=== PATIENT | male | born 1945 | race Caucasian/White ===

== ENCOUNTER → 2017-02-17 | Emergency (ER) | payer OTHER ==
[2017-02-17 12:36] VITALS: BP 138/77; TEMP 98.3; O2SAT 98
--- NOTE | 2017-02-17 12:57 | ED.PDOC ---
History of Present Illness - General Chief Complaint: Problem Stated Complaint: urinary frequency and UTI Time Seen by Provider: 02/17/17 12:51 Additional Information: C/O DIFFICULTY URINATING. HAS HAD LONG STANDING DIFFICULTY WITH URINATION AND [facility] HAS BEEN ON ORAL MEDS WITH LITTLE RELIEF. STATES STREAM IS DISBURSED TO THE POINT HE HAS TO SIT TO URINATE. TODAY HAD DIFFICULTY. THOUGHT HE HAD FINISHED THEN HAD URINARY LEAKAGE THROUGH HIS CLOTHES. DOES NOT THINK HE CAN WAIT UNTIL FEBRUARY. - History of Present Illness Severity: mild Improving Factors: nothing Worsening Factors: nothing Associated Symptoms: denies symptoms Allergies/Adverse Reactions: Allergies NO KNOWN ALLERGY Allergy (Verified 10/05/15 12:52) Home Medications: Ambulatory Orders Atorvastatin Calcium [Lipitor] 20 mg PO DAILY 08/04/15 Carvedilol [Coreg] 50 mg PO BEDTIME 08/04/15 Hydrochlorothiazide 50 mg PO DAILY 08/04/15 Lisinopril 20 mg PO DAILY 08/04/15 Omeprazole 20 mg PO DAILY 08/04/15 Sulfamethoxazole-Trimethoprim [Bactrim Ds 800-160 mg] 1 tab PO BID #20 tab 08/03 Tramadol HCl [Ultram] 50 mg PO Q6HRS PRN #30 tab 08/04/15 metFORMIN HCL [Glucophage] 500 mg PO DAILY 08/04/15 Carlos A/Poly/Hc Otic Susp [Cortisporin Otic Susp] 4 drops RIGHT_EAR TID #10 ml 10/04 Ciprofloxacin [Cipro] 500 mg PO BID #20 ml 02/17/17 Tamsulosin HCl [Flomax] 0.4 mg PO Q24HR #30 cap 02/17/17 Review of Systems - Review of Systems Constitutional: Denies: chills, fever EENTM: States: no symptoms reported Respiratory: States: no symptoms reported Cardiology: States: no symptoms reported Gastrointestinal/Abdominal: Denies: abdominal pain, nausea, vomiting Genitourinary: States: frequency. Denies: discharge, dysuria, hematuria Musculoskeletal: Denies: back pain Skin: States: no symptoms reported Neurological: Denies: numbness, tingling, weakness Endocrine: States: no symptoms reported Past Medical History (General) - Patient Medical History Hx Stroke: No Hx Cardiac Disorders: Yes - [place] 1998 Hx Congestive Heart Failure: Yes Hx Hypertension: Yes Hx Diabetes: Yes - NIDDM Hx Gastroesophageal Reflux: Yes Hx MRSA: Yes MRSA Source:: Wound - Vaccination History Hx Influenza Vaccination: Yes - 2014 Hx Pneumococcal Vaccination: Yes - 2013 - Social History Hx Tobacco Use: Yes Hx Alcohol Use: No Hx Substance Use: No Hx Substance Use Treatment: No Hx Depression: No - Female History Patient : No - Triage Comment ED Triage Comment: Patient states he has urinary frequency for the past month. stating urinates almost every hour throughout the night. Also started having low back pain yesterday. Family Medical History - Family History Father Living Status: Hx Cardiac Disease: Yes Physical Exam - Physical Exam General Appearance: Alert, No apparent distress, Well Developed, Well Nourished Eye Exam: bilateral normal Ears, Nose, Throat: hearing grossly normal, normal ENT inspection Neck: non-tender, full range of motion, supple, normal inspection Respiratory: lungs clear, normal breath sounds Cardiovascular/Chest: regular rate, rhythm, no murmur Gastrointestinal/Abdominal: normal bowel sounds, non tender, soft, no organomegaly, other - OBESE Rectal Exam: normal rectal tone, heme negative stool - PROSTATE SLIGHLTY BOGGY, 1+ ENLARGED, NTTP Back Exam: normal inspection, no CVA tenderness Extremity: normal range of motion, non-tender Neurologic: no motor/sensory deficits, alert, normal mood/affect Skin Exam: normal color, warm/dry Lymphatic: no adenopathy Progress - Progress Progress: 02/17/17 DISCUSSED HAJI WITH LEG BAG WITH PT. HE REFUSES. WILL COVER WITH ABX. HAS USED FLOMAX WITH SOME SUCCESS IN PAST. [facility] Departure - Departure Clinical Impression: Benign prostate hyperplasia Qualifiers: Lower urinary tract symptom presence: symptoms present Lower urinary tract symptom detail: incomplete bladder emptying Qualified Code(s): N40.1 - Benign prostatic hyperplasia with lower urinary tract symptoms; R39.14 - Feeling of incomplete bladder emptying Disposition: Discharge to Home or Self Care Condition: Fair Departure Forms: ED Discharge - Pt. Copy, Patient Portal Self Enrollment Prescriptions: Tamsulosin HCl [Flomax] 0.4 mg PO Q24HR #30 cap Ciprofloxacin [Cipro] 500 mg PO BID #20 ml Home Medications: Ambulatory Orders Atorvastatin Calcium [Lipitor] 20 mg PO DAILY 08/04/15 Carvedilol [Coreg] 50 mg PO BEDTIME 08/04/15 Hydrochlorothiazide 50 mg PO DAILY 08/04/15 Lisinopril 20 mg PO DAILY 08/04/15 Omeprazole 20 mg PO DAILY 08/04/15 Sulfamethoxazole-Trimethoprim [Bactrim Ds 800-160 mg] 1 tab PO BID #20 tab 08/03 Tramadol HCl [Ultram] 50 mg PO Q6HRS PRN #30 tab 08/04/15 metFORMIN HCL [Glucophage] 500 mg PO DAILY 08/04/15 Carlos A/Poly/Hc Otic Susp [Cortisporin Otic Susp] 4 drops RIGHT_EAR TID #10 ml 10/04 Ciprofloxacin [Cipro] 500 mg PO BID #20 ml 02/17/17 Tamsulosin HCl [Flomax] 0.4 mg PO Q24HR #30 cap 02/17/17
== END | disposition home or self-care (01) ==
LOC: ER 12:08
DX: N40.1 Benign prostatic hyperplasia with lower urinary tract symptoms (principal); R35.0 Frequency of micturition; R39.14 Feeling of incomplete bladder emptying; I25.2 Old myocardial infarction; I11.0 Hypertensive heart disease with heart failure; I50.9 Heart failure, unspecified; E11.9 Type 2 diabetes mellitus without complications; Z87.891 Personal history of nicotine dependence; Z79.899 Other long term (current) drug therapy

== ENCOUNTER 2017-03-29 12:35 | Inpatient (IN) | payer OTHER ==
[2017-03-29] MEDS ORDERED: IPRATROPIUM/ALBUTEROL 3 ML VIAL NEB ONE ×2 (12:49→12:55)
--- NOTE | 2017-03-29 13:16 | RAD ---
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 No pleural effusion or pneumothorax is present. The heart size is upper limits of normal. Vascular calcifications are seen in the aorta. Impression: Right lower lobe consolidation suspicious for pneumonia or aspiration. Recommend follow-up with two views of the chest to document complete resolution.. Electronically signed by: Mirtha Diaz MD 03/29/2017 1:15 PM SCHOOL GUARD
[2017-03-29] MEDS ORDERED: cefTRIAXone SODIUM 1 GM in SODIUM CHL 0.9% 50ML MIN-BAG+ 50 ML IVPB ONE (13:34)
[2017-03-29] MEDS ORDERED: AZITHROMYCIN IV 500 MG in SODIUM CHLORIDE 0.9% 250ML 250 ML IVPB ONE (13:36)
--- NOTE | 2017-03-29 13:39 | ED.PDOC ---
History of Present Illness - General Chief Complaint: Respiratory Problem Stated Complaint: cough x10 days Time Seen by Provider: 03/29/17 13:26 Source: patient Exam Limitations: no limitations Additional Information: COUGH FOR A WEEK. NOT IMPROVING WITH OTC MEDS. COMES TO ER FOR EVALUATION SECONDARY TO DEVELOPMENT OF SOB. - History of Present Illness Timing/Duration: 1 week Severity: moderate Improving Factors: nothing Worsening Factors: nothing Associated Symptoms: denies symptoms Allergies/Adverse Reactions: Allergies NO KNOWN ALLERGY Allergy (Verified 10/05/15 12:52) Home Medications: Ambulatory Orders Atorvastatin Calcium [Lipitor] 20 mg PO DAILY 08/04/15 Carvedilol [Coreg] 50 mg PO BEDTIME 08/04/15 Hydrochlorothiazide 50 mg PO DAILY 08/04/15 Lisinopril 20 mg PO DAILY 08/04/15 Omeprazole 20 mg PO DAILY 08/04/15 Sulfamethoxazole-Trimethoprim [Bactrim Ds 800-160 mg] 1 tab PO BID #20 tab 08/03 Tramadol HCl [Ultram] 50 mg PO Q6HRS PRN #30 tab 08/04/15 metFORMIN HCL [Glucophage] 500 mg PO DAILY 08/04/15 Carlos A/Poly/Hc Otic Susp [Cortisporin Otic Susp] 4 drops RIGHT_EAR TID #10 ml 10/04 Ciprofloxacin [Cipro] 500 mg PO BID #20 ml 02/17/17 Tamsulosin HCl [Flomax] 0.4 mg PO Q24HR #30 cap 02/17/17 Review of Systems - Review of Systems Constitutional: Denies: chills, fever EENTM: States: no symptoms reported Respiratory: States: 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, 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, 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 Cardiology: Denies: chest pain, syncope Gastrointestinal/Abdominal: Denies: nausea, vomiting Genitourinary: States: no symptoms reported Musculoskeletal: States: no symptoms reported Skin: States: no symptoms reported, other - NO SWEATS Neurological: States: no symptoms reported Endocrine: States: no symptoms reported Hematologic/Lymphatic: States: no symptoms reported Past Medical History (General) - Patient Medical History Hx Stroke: No Hx Cardiac Disorders: Yes - [place] 1998 Hx Congestive Heart Failure: Yes Hx Hypertension: Yes Hx Diabetes: Yes - NIDDM Hx Gastroesophageal Reflux: Yes Hx MRSA: Yes MRSA Source:: Wound - Vaccination History Hx Influenza Vaccination: Yes - 2014 Hx Pneumococcal Vaccination: Yes - 2014 - Social History Hx Tobacco Use: Yes Hx Alcohol Use: No Hx Substance Use: No Hx Substance Use Treatment: No Hx Depression: No - Female History Patient : No Family Medical History - Family History Father Living Status: Hx Cardiac Disease: Yes Physical Exam - Physical Exam General Appearance: Alert, No apparent distress Eye Exam: bilateral normal Ears, Nose, Throat: hearing grossly normal, normal ENT inspection Neck: non-tender Respiratory: no respiratory distress, other - RLL RALES Cardiovascular/Chest: regular rate, rhythm, no murmur Gastrointestinal/Abdominal: non tender, soft, no organomegaly Back Exam: normal inspection, no CVA tenderness Extremity: normal range of motion, normal inspection Neurologic: alert, normal mood/affect Skin Exam: normal color, warm/dry Lymphatic: no adenopathy Progress - EKG/XRAY/CT XRAY: chest - RLL INFILTRATE Departure - Departure Clinical Impression: Pneumonia, Hypoxemia, Hypertension Disposition: Discharge to Home or Self Care Condition: Fair Departure Forms: ED Discharge - Pt. Copy, Patient Portal Self Enrollment Home Medications: Ambulatory Orders Atorvastatin Calcium [Lipitor] 20 mg PO DAILY 08/04/15 Carvedilol [Coreg] 50 mg PO BEDTIME 08/04/15 Hydrochlorothiazide 50 mg PO DAILY 08/04/15 Lisinopril 20 mg PO DAILY 08/04/15 Omeprazole 20 mg PO DAILY 08/04/15 Sulfamethoxazole-Trimethoprim [Bactrim Ds 800-160 mg] 1 tab PO BID #20 tab 08/03 Tramadol HCl [Ultram] 50 mg PO Q6HRS PRN #30 tab 08/04/15 metFORMIN HCL [Glucophage] 500 mg PO DAILY 08/04/15 Carlos A/Poly/Hc Otic Susp [Cortisporin Otic Susp] 4 drops RIGHT_EAR TID #10 ml 10/04 Ciprofloxacin [Cipro] 500 mg PO BID #20 ml 02/17/17 Tamsulosin HCl [Flomax] 0.4 mg PO Q24HR #30 cap 02/17/17
[2017-03-29] MEDS ORDERED: SODIUM CHLORIDE 0.9% 250ML 250 ML ONE (15:05)
[2017-03-29] MEDS ORDERED: AZITHROMYCIN IV 500 MG VIAL IVPB ONE (15:05)
[2017-03-29] MEDS ORDERED: cefTRIAXone SODIUM 1 GM VIAL ONE (16:30)
[2017-03-29] MEDS ORDERED: SODIUM CHL 0.9% 50ML MIN-BAG+ 50 ML IVPB ONE (16:30)
--- NOTE | 2017-03-29 20:15 | HP ---
SUPERVISING PHYSICIAN: Brock Mercado MD CHIEF COMPLAINT: Hypoxia with a persistent cough for 10 days. HISTORY OF PRESENT ILLNESS: Mr. Grijalva is a 71 year-old male patient who has had a cough that has become more productive over the last 10 days. He has attempted to treat himself with [id number] medications but has continued to worsen. He came to the Emergency Room today because he had developed significant shortness of breath. In the Emergency Room, initially his vital signs showed he was hypoxic with initial 02 saturation of 85% on room air, improved after breathing treatments and nasal canula up to 93%. He was running a low grade fever at 99.8. His laboratory studies showed he had a normal white count with a hemoglobin of 12.9 and hematocrit 38.3. Platelet count 216,000 with no significant left shift. His radiographic studies completed initially in the Emergency Room per radiology interpretation showed he had a right lower lobe consolidation suspicious for pneumonia or aspiration. Given the significant desaturation and low grade fever and findings on radiographic studies to indicate a pneumonia process that had failed to improve with any effort of treatment over the last week, Dr. Hudson, Emergency Room physician, requested the patient be admitted to the hospital for ongoing treatment of community acquired pneumonia in a patient with a significant history of smoking and chronic obstructive pulmonary disease. PAST MEDICAL HISTORY: 1. Chronic obstructive pulmonary disease in chronic smoker. 2. Congestive heart failure diagnosed in 1998 without a current echocardiogram for review. 3. Cardiovascular disease with multiple myocardial infarctions. 4. Hypertension. 5. Diabetes mellitus on oral therapy. 6. Chronic enlarged prostate with urethral strictures. PAST SURGICAL HISTORY: 1 Appendectomy. 2. Right knee surgery. 3. Synovial cyst. CURRENT MEDICATIONS: 1. Lipitor 20 mg daily. 2. Aspirin 81 mg daily.. 3. Metformin 500 mg daily. 4. Flomax 0.4 mg every 24 hours. 5. Omeprazole 20 mg daily. 6. Hydrochlorothiazide 50 mg daily. 7. Coreg 15 mg at bedtime. ALLERGIES: NO KNOWN DRUG ALLERGIES. FAMILY HISTORY: Significant for cardiovascular disease. SOCIAL HISTORY: The patient lives in [place]. He is a retired [employer] , having served in [employer]. 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 He does currently smoke approximately a half pack a day. He quit drinking alcohol approximately 4 months previously. He denies any illicit drug use. REVIEW OF SYSTEMS: CONSTITUTIONAL: Denies chills, fevers, general malaise. HEENT: Denies headaches. Does have some nasal congestion. No sore throat. CHEST: As noted in history of present illness. Productive cough with worsening shortness of breath. HEART: Denies chest pain ,syncopal episodes, palpitations. ABDOMEN: Denies nausea, vomiting, diarrhea, constipation. GENITOURINARY: As noted in history of present illness. History of urethral stricture currently under the care of a urologist. Scheduled to have a cystoscope procedure later this month but denies any hematuria or dysuria. NEUROLOGIC: No syncopal episodes, no vision changes. No neurological deficits noted. PHYSICAL EXAMINATION: VITAL SIGNS: Temperature 99.8, pulse 86, blood pressure 155/83, respirations 18, saturation 96% on 3 liter nasal cannula. Admission weight 108.8 kg. GENERAL: The patient feels comfortable, no acute distress. Well-nourished, well-hydrated. HEENT: Tympanic membranes are clear bilaterally. Oropharynx is pink, moist with no lesions. NECK: Supple, non-tender with full range of motion. No jugular venous distention. CHEST: Notable for right lower lobe rales and a mild expiratory wheeze, more prominent on the right than the left. CARDIOVASCULAR: Regular rate and rhythm with no appreciable murmurs, rubs, or gallops. ABDOMEN: Obese, soft, non-tender with positive bowel sound. EXTREMITIES: No cyanosis, clubbing, or edema. NEUROLOGIC: He is alert and oriented x 3. LABORATORY: Hematology showed a white count of 7,200 with hemoglobin 12.9, hematocrit 38.3, platelet count of 216,000, differential showed to be without a left shift. Chemistries showed normal electrolytes, potassium 3.8, BUN 10, creatinine 0.76, glucose 254, calcium 8.8. Liver functions showed to be within normal limits. BNP slightly elevated at 427. MICROBIOLOGY: Blood cultures are pending. He had influenza A and B swab by PCR which both were negative. RADIOLOGY: Chest x-ray in the Emergency Department prior to admission 2-view chest showed a right lower lobe consolidation suspicious for pneumonia or aspiration. ASSESSMENT: 1. Acute exacerbation of chronic obstructive pulmonary disease with right lower lobe pneumonia as noted on radiologic studies concerning for community acquired pneumonia. 2. History of congestive heart failure with no current echocardiogram for review with patient having an elevated BNP on admission but showing no overt signs of edema or pulmonary symptoms. 3. Hypertension. 4. Diabetes mellitus on oral therapy. 5. Chronic prostatitis with urethral blockage requiring procedure to be formed on April 10 by a urologist at the [facility]. PLAN: The patient will be admitted to the hospital for ongoing treatment of community acquired pneumonia as noted on radiographic studies. Blood cultures completed prior to administration of antibiotics included Rocephin and azithromycin. Given that he is having some wheezing and has an extensive history of cardiovascular disease and smoking, I will go ahead and start him on some steroids 80 mg initially and reassess in the morning for continued need of steroid treatment. We will encourage smoking cessation. Will start him on DVT prophylaxis as per protocol. He will be on sliding scale per protocol. Will reinitiate his home medications once they have been updated and verified. Anticipate length of stay to be at least 2 to 3 days. He will be on aggressive pulmonary hygiene with chest percussive therapy and will await a sputum culture to further target antibiotic therapy. Until clinically stable and improved and be able to be discharged, will continue to monitor and treat appropriately. [facility][id number] [facility]
[2017-03-29] MEDS ORDERED: GLUCAGON INJ 1 MG VIAL SUBCU PRN (20:52)
[2017-03-29] MEDS ORDERED: DEXTROSE 50% 25 GM/50 ML SYG IV PRN (20:52)
[2017-03-29] MEDS ORDERED: ALBUTEROL SULFATE 2.5 MG/3 ML VIAL NEB PRN (20:52)
[2017-03-29] MEDS ORDERED: ACETAMINOPHEN 325 MG TAB PO PRN (20:52)
[2017-03-29] MEDS ORDERED: ONDANSETRON INJ 4 MG/2 ML VIAL IV PRN (20:52)
[2017-03-29] MEDS ORDERED: IPRATROPIUM/ALBUTEROL 3 ML VIAL INH SCH (21:00)
[2017-03-29] MEDS ORDERED: IV SET AND CAP CHANGE INJ INJ SCH (21:00)
[2017-03-29] MEDS: INSULIN LISPRO 100 UNITS/ML PEN SUBCU SCH (21:43)
[2017-03-29] MEDS ORDERED: methylPREDNISolone SODIUM SUC 125 MG/2 ML VIAL IV ONE (22:11)
[2017-03-29] MEDS: SODIUM CHLORIDE 0.9% (FLUSH) 10 ML SYG IV PRN (23:07)
--- NOTE | 2017-03-29 23:13 | PCM.CORE ---
Physician DVT/VTE - Nurse DVT Assessment & Total Each Risk Factor Represents 2 Points: Age 60-74 Each Risk Factor Represents 1 Point: Hx of smoking past year Each Risk Factor is 1 Point: Obesity (BMI >25), Serious Lung disease (pnemonia < 1month, COPD, emphysema,etc) DVT Assessment Score: 5 - 5 or more Very High Risk Treatments: Early Ambulation *, Sequential Compression Device Pharmacological: Enoxaparin 40mg SQ Daily
[2017-03-29] MEDS ORDERED: ENOXAPARIN SODIUM 40 MG/0.4 ML SYG SUBCU SCH (23:30)
[2017-03-30] MEDS: SODIUM CHLORIDE 0.9% (FLUSH) 10 ML SYG IV PRN ×3 (06:09→20:34)
[2017-03-30] MEDS: PANTOPRAZOLE SODIUM IV 40 MG VIAL IV SCH (06:10)
--- NOTE | 2017-03-30 07:09 | RAD ---
EXAM: Two view chest. INDICATION: Pneumonia. COMPARISON: Chest x-ray: 03/29/2017. FINDINGS: Cardiac silhouette: Unremarkable. Gisselle: Unremarkable. Lobar consolidation: Right basilar Pleural effusion: None. Pneumothorax: None. Other: None. Bones: Unremarkable. Other: None. IMPRESSION: Right basilar pneumonia Electronically signed by: Tre Blankenship MD 03/30/2017 7:08 AM V[employer] ARCHITECT Workstation: [id number]
[2017-03-30] MEDS ORDERED: SODIUM CHL 0.9% 50ML MIN-BAG+ 50 ML IVPB ONE (07:24)
[2017-03-30] MEDS ORDERED: hydroCHLOROthiazide 25 MG TAB ONE (07:25)
[2017-03-30] MEDS ORDERED: cefTRIAXone SODIUM 1 GM VIAL ONE (07:25)
[2017-03-30] MEDS ORDERED: IPRATROPIUM/ALBUTEROL 3 ML VIAL NEB ONE (07:47)
[2017-03-30] MEDS: IPRATROPIUM/ALBUTEROL 3 ML VIAL NEB SCH ×4 (08:02→20:42)
[2017-03-30] MEDS: INSULIN LISPRO 100 UNITS/ML PEN SUBCU SCH ×7 (08:13→21:00)
[2017-03-30] MEDS: TAMSULOSIN 0.4 MG CAP PO SCH (08:16)
[2017-03-30] MEDS: metFORMIN HCL 500 MG TAB PO SCH (08:16)
[2017-03-30] MEDS: cefTRIAXone SODIUM 1 GM in SODIUM CHL 0.9% 50ML MIN-BAG+ 50 ML IVPB SCH (08:17)
[2017-03-30] MEDS: ASPIRIN EC 81 MG TAB PO SCH (08:19)
[2017-03-30] MEDS: hydroCHLOROthiazide 25 MG TAB PO SCH (08:19)
[2017-03-30] MEDS ORDERED: OMEPRAZOLE CAP 20 MG CAP PO SCH (09:00)
[2017-03-30] MEDS ORDERED: LORazepam 0.5 MG TAB PO PRN (10:44)
[2017-03-30] MEDS ORDERED: SODIUM CHLORIDE 0.9% 250ML 250 ML ONE (10:45)
[2017-03-30] MEDS ORDERED: AZITHROMYCIN IV 500 MG VIAL IVPB ONE (10:45)
[2017-03-30] MEDS ORDERED: AZITHROMYCIN IV 500 MG in SODIUM CHLORIDE 0.9% 250ML 250 ML IVPB SCH (11:00)
--- NOTE | 2017-03-30 16:09 | PN ---
DATE: 03/30/17 SUPERVISING PHYSICIAN: Brock Mercado M.D. SUBJECTIVE: The patient is sitting up in his hospital bed eating his lunch. He continues complaints of weakness and a dry cough as well as some mild shortness of breath, but feels much better than when he came into the hospital. OBJECTIVE: VITAL SIGNS: T max 24 hours is 99.8, pulse rate 92, blood pressure 179/95, respiratory rate 21, O2 sat is 91% on 2 liters nasal cannula. RESPIRATORY: Essentially clear in the apices, somewhat diminished in the bases, especially in the right lower lung. CARDIAC: Regular rate and rhythm. ABDOMEN : Soft, nondistended, non-tender. Bowel sounds are positive. EXTREMITIES: No cyanosis, clubbing or edema. NEUROLOGIC: He is awake, alert and oriented times three. LABORATORY: WBCs are 8.9 with a stable hemoglobin of 13.6 and hematocrit of 40.2, neutrophils 91.2%. Blood sugars have been somewhat elevated up to 283 but his electrolytes have basically been within normal limits. Preliminary blood cultures are negative to date. RADIOLOGY: Chest x-ray per radiology interpretation shows right basilar pneumonia. All other labs and films have been reviewed via the EMR. ASSESSMENT: 1. Acute exacerbation of chronic obstructive pulmonary disease with right lower lobe pneumonia as noted on radiologic studies concerning for community acquired pneumonia. 2. History of congestive heart failure with no current echocardiogram for review and patient having an elevated BNP on admission but showing no overt signs of edema or pulmonary symptoms. 3. Hypertension. 4. Diabetes mellitus on oral therapy. 5. Chronic prostatitis with urethral blockage requiring procedure to be formed on April 10 by a urologist at the [facility]. PLAN: We will continue present supportive care. I will not continue any steroids as he has no wheezing at this time and clinically is improved. I will repeat his labs and chest x-ray in the morning. I have encouraged good pulmonary hygiene and we discussed his plan for discharge. Hopefully he can be discharged tomorrow or Friday. We will continue present supportive care and followup as needed. Dr. Mercado is the collaborating physician available for consultation. #[id number] [facility]
[2017-03-30] MEDS ORDERED: SAXAGLIPTIN HCL 5 MG PO SCH (17:00)
[2017-03-30] MEDS ORDERED: ENOXAPARIN SODIUM 40 MG/0.4 ML SYG SUBCU ONE (19:20)
[2017-03-30] MEDS ORDERED: CARVEDILOL 12.5 MG TAB ONE (19:20)
[2017-03-30] MEDS ORDERED: ATORVASTATIN 20 MG TAB PO ONE (19:20)
[2017-03-30] MEDS ORDERED: CARVEDILOL 12.5 MG TAB PO SCH (21:00)
[2017-03-30] MEDS ORDERED: ATORVASTATIN 20 MG TAB PO SCH (21:00)
[2017-03-30] MEDS ORDERED: ENOXAPARIN SODIUM 40 MG/0.4 ML SYG SUBCU SCH (21:00)
[2017-03-31] MEDS: SODIUM CHLORIDE 0.9% (FLUSH) 10 ML SYG IV PRN ×2 (06:20→08:51)
[2017-03-31] MEDS: PANTOPRAZOLE SODIUM IV 40 MG VIAL IV SCH (06:21)
--- NOTE | 2017-03-31 07:05 | RAD ---
EXAM: Two view chest. INDICATION: Pneumonia. COMPARISON: Chest x-ray: 03/30/2017. FINDINGS: Cardiac silhouette: Unremarkable. Gisselle: Unremarkable. Lobar consolidation: Right basilar airspace opacity Pleural effusion: None. Pneumothorax: None. Other: None. Bones: Unremarkable. Other: None. IMPRESSION: Right basilar airspace opacity, concerning for pneumonia Electronically signed by: Tre Blankenship MD 03/31/2017 7:04 AM STAPLER MACHINE Workstation: [id number]
[2017-03-31] MEDS ORDERED: SODIUM CHL 0.9% 50ML MIN-BAG+ 50 ML IVPB ONE (07:52)
[2017-03-31] MEDS ORDERED: cefTRIAXone SODIUM 1 GM VIAL ONE ×2 (07:53→11:03)
[2017-03-31] MEDS: INSULIN LISPRO 100 UNITS/ML PEN SUBCU SCH ×4 (07:57→08:05)
[2017-03-31] MEDS: metFORMIN HCL 500 MG TAB PO SCH (07:59)
[2017-03-31] MEDS: hydroCHLOROthiazide 25 MG TAB PO SCH (08:01)
[2017-03-31] MEDS: TAMSULOSIN 0.4 MG CAP PO SCH (08:02)
[2017-03-31] MEDS: ASPIRIN EC 81 MG TAB PO SCH (08:02)
[2017-03-31] MEDS: IPRATROPIUM/ALBUTEROL 3 ML VIAL NEB SCH (08:20)
[2017-03-31] MEDS: cefTRIAXone SODIUM 1 GM in SODIUM CHL 0.9% 50ML MIN-BAG+ 50 ML IVPB SCH (08:49)
[2017-03-31 10:28] VITALS: BP 136/81; TEMP 97.8; O2SAT 93
[2017-03-31] MEDS ORDERED: ALBUTEROL INHALER 64 PUFF/8GM INH ONE (10:53)
[2017-03-31] MEDS ORDERED: AZITHROMYCIN 250 MG TAB PO SCH (11:00)
[2017-03-31] MEDS ORDERED: ALBUTEROL INHALER 64 PUFF/8GM INH SCH (12:00)
--- NOTE | 2017-03-31 15:10 | DS ---
SUPERVISING PHYSICIAN: Gonzalo Novoa MD ADMISSION DIAGNOSIS: 1. Acute exacerbation of chronic obstructive pulmonary disease. 2. History of congestive heart failure. 3. Hypertension. 4. Diabetes mellitus. 5. Chronic prostatitis. DISCHARGE DIAGNOSIS: 1. Acute exacerbation of chronic obstructive pulmonary disease. 2. History of congestive heart failure. 3. Hypertension. 4. Diabetes mellitus. 5. Chronic prostatitis. CONDITION UPON DISCHARGE: Fair. HOSPITAL COURSE: Mr. Grijalva is a 71-year-old male who was admitted on 03/29/17 due to progressively worsening cough over the last ten days. He was attempting to treat with [id number] medications, but it continued to worsen. Therefore,e francesca went to the Emergency Room and he was hypoxic with O2 saturation of 85%. After multiple breathing treatments as well as nasal cannula, his O2 saturations went up to 93%. Chest x-ray at the time showed a right lower lobe consolidation as well. His labs did not show a white count upon admission and continued to stay normal throughout the admission. On date of discharge, white count was 9.2, hemoglobin 12.4, platelet count 230. His blood cultures which were drawn on admission remained negative over the last 48 hours as well. The patient's oxygen requirements resolved and he was having adequate O2 saturation on room air. He does use the [place] and had a followup appointment already scheduled for 04/11/17 with [facility] in [place], I believe. He was discharged in stable condition. DISCHARGE MEDICATIONS: 1. Ventolin inhaler to be used 2 puffs 4 times a day as needed. 2. Amoxicillin 500 mg p.o. b.i.d. for 7 days. #[id number] [facility]
[2017-03-31] MEDS ORDERED: [UNRECOGNIZED DRUG - OTHER] PO SCH (17:00)
[2017-04-01] MEDS ORDERED: PANTOPRAZOLE SODIUM TAB 40 MG PO SCH (06:30)
== END 2017-03-31 11:17 | disposition home or self-care (01) | DRG 190 ==
LOC: ER 12:35 → OBSVTOIN 20:14 → MS 20:14
PROVIDERS: ADMIT Nurse Practitioner Family; ATTEND Nurse Practitioner
DX: J44.1 Chronic obstructive pulmonary disease with (acute) exacerbation (principal); J18.9 Pneumonia, unspecified organism; J44.0 Chronic obstructive pulmonary disease with (acute) lower respiratory infection; I11.0 Hypertensive heart disease with heart failure; I50.9 Heart failure, unspecified; E11.9 Type 2 diabetes mellitus without complications; N41.1 Chronic prostatitis; R09.02 Hypoxemia; F17.210 Nicotine dependence, cigarettes, uncomplicated; N35.9 Urethral stricture, unspecified; I25.10 Atherosclerotic heart disease of native coronary artery without angina pectoris; E66.9 Obesity, unspecified; I25.2 Old myocardial infarction; Z79.82 Long term (current) use of aspirin; Z79.84 Long term (current) use of oral hypoglycemic drugs; Z79.899 Other long term (current) drug therapy; Z68.31 Body mass index [BMI] 31.0-31.9, adult

== ENCOUNTER 2017-06-27 07:53 | Emergency (ER) | payer OTHER ==
--- NOTE | 2017-06-27 08:29 | ED.PDOC ---
History of Present Illness - General Chief Complaint: Skin/Abrasion/Tear Stated Complaint: cyst on back of neck Time Seen by Provider: 06/27/17 08:26 Source: patient Exam Limitations: no limitations - History of Present Illness Initial Comments: [place] Grijalva 72 y/o male came to ER with long standing firm laurita back of nect for several years. [facility] and was supposed to be referred to surgeon but accdg. to patient his Md might have forgotten it stated hurts when bend s head. Timing/Duration: other - several years Severity: mild Location: none - see hpi Improving Factors: nothing Worsening Factors: movement Associated Symptoms: denies symptoms Allergies/Adverse Reactions: Allergies NO KNOWN ALLERGY Allergy (Verified 10/05/15 12:52) Home Medications: Ambulatory Orders Atorvastatin Calcium [Lipitor] 20 mg PO DAILY 08/04/15 Carvedilol [Coreg] 50 mg PO BEDTIME 08/04/15 Hydrochlorothiazide 50 mg PO DAILY 08/04/15 Omeprazole 20 mg PO DAILY 08/04/15 metFORMIN HCL [Glucophage] 500 mg PO DAILY 08/04/15 Tamsulosin HCl [Flomax] 0.4 mg PO Q24HR #30 cap 02/17/17 Aspirin [Aspirin Adult Low Dose] 81 mg PO QAM 03/29/17 LORazepam [Ativan] 0.5 mg PO Q4HR PRN 03/30/17 Saxagliptin HCl [Onglyza] 5 mg PO 1700 03/30/17 Amoxicillin [Amoxil] 500 mg PO BID #14 cap 03/31/17 Cephalexin 1,000 mg PO BID 7 Days #30 cap 06/27/17 Review of Systems - Review of Systems Constitutional: States: no symptoms reported EENTM: States: no symptoms reported Respiratory: States: no symptoms reported Cardiology: States: no symptoms reported Skin: States: see HPI All other Systems: Reviewed and Negative, No Change from Baseline Past Medical History (General) - Patient Medical History Hx Seizures: No Hx Stroke: No Hx Asthma: No Hx of COPD: No Hx Cardiac Disorders: Yes - [place] 1998 Hx Congestive Heart Failure: Yes Hx Pacemaker: No Hx Hypertension: Yes Hx Diabetes: Yes - NIDDM Hx Gastroesophageal Reflux: Yes Hx MRSA: No MRSA Source:: Wound Surgical History: appendectomy, other - pilonidal cyst excision;knee - Vaccination History Hx Influenza Vaccination: Yes - 2014 Hx Pneumococcal Vaccination: Yes - 2013 - Social History Hx Tobacco Use: Yes Hx Alcohol Use: No Hx Substance Use: No Hx Substance Use Treatment: No Hx Depression: No Hx Physical Abuse: No Hx Emotional Abuse: No - Activities of Daily Living Grooming Ability: Independent Eating (Feeding) Ability: Independent Toileting Ability: Independent - Female History Patient : No Family Medical History - Family History Father Living Status: Hx Cardiac Disease: Yes - mom/brothers Physical Exam - Physical Exam General Appearance: Alert, Comfortable, No apparent distress Eyes, Ears, Nose, Throat Exam: normal ENT inspection Neck: non-tender, supple, other - 2cm x 2 cm firm lesion back of neck with slight erythema Cardiovascular/Chest: regular rate, rhythm, no gallop, no murmur Respiratory: lungs clear, normal breath sounds Gastrointestinal/Abdominal: non tender, soft, no organomegaly Neurologic: alert, oriented x 3 Skin Exam: warm/dry, normal color Skin Problem Location: other - see neck exam Skin Character: other - refer to neck exam Lymphatic: no adenopathy Progress - Progress Progress: 06/27/17 08:33 Vital Signs - 24 hr 06/27/17 08:18 Temperature 97.9 F Pulse Rate [ 78 left brachial] Respiratory 20 Rate Blood Pressure 159/109 [left brachial] O2 Sat by Pulse 99 Oximetry Departure - Departure Clinical Impression: Infected epithelial inclusion cyst Time of Disposition: 08:34 Disposition: Discharge to Home or Self Care Condition: Good Departure Forms: ED Discharge - Pt. Copy, Patient Portal Self Enrollment Instructions: DI for Epidermal Cyst, Epidermal Cyst Prescriptions: Cephalexin 1,000 mg PO BID 7 Days #30 cap Home Medications: Ambulatory Orders Atorvastatin Calcium [Lipitor] 20 mg PO DAILY 08/04/15 Carvedilol [Coreg] 50 mg PO BEDTIME 08/04/15 Hydrochlorothiazide 50 mg PO DAILY 08/04/15 Omeprazole 20 mg PO DAILY 08/04/15 metFORMIN HCL [Glucophage] 500 mg PO DAILY 08/04/15 Tamsulosin HCl [Flomax] 0.4 mg PO Q24HR #30 cap 02/17/17 Aspirin [Aspirin Adult Low Dose] 81 mg PO QAM 03/29/17 LORazepam [Ativan] 0.5 mg PO Q4HR PRN 03/30/17 Saxagliptin HCl [Onglyza] 5 mg PO 1700 03/30/17 Amoxicillin [Amoxil] 500 mg PO BID #14 cap 03/31/17 Cephalexin 1,000 mg PO BID 7 Days #30 cap 06/27/17 Additional Instructions: NEED TO FOLLOW UP WITH Surgeon for excision of cyst JOSE
[2017-06-27 08:32] VITALS: BP 159/109; TEMP 97.9; O2SAT 99
== END 2017-06-27 08:40 | disposition home or self-care (01) ==
LOC: ER 07:53
DX: L72.0 Epidermal cyst (principal); I25.2 Old myocardial infarction; I11.0 Hypertensive heart disease with heart failure; I50.9 Heart failure, unspecified; E11.9 Type 2 diabetes mellitus without complications; K21.9 Gastro-esophageal reflux disease without esophagitis; Z87.891 Personal history of nicotine dependence; Z79.82 Long term (current) use of aspirin

== ENCOUNTER 2020-04-15 12:18 | Emergency (ER) | payer MEDICARE, OTHER ==
--- NOTE | 2020-04-15 12:31 | ED.PDOC ---
History of Present Illness - General Chief Complaint: Headache Stated Complaint: headache Time Seen by Provider: 04/15/20 12:20 Source: patient, RN notes reviewed, Vital Signs reviewed Exam Limitations: no limitations - History of Present Illness Initial Comments: 1 day of severe left sided headache. no fever, shortness of breath or cough. daughter recently from covid. does not get frequent headaches. Headache is posterior left occipital, radiating to right frontal. worse with lying flat. achy in nature, currently a 2/10. no change in vision, no weakness, no sore throat, no congestion. Patient is a diabetic, he does not check his glucose at home. states when he gets out of his recliner he feels a little wobbly. states he was having a lot anxiety last night so took his anxiety benzo. Allergies/Adverse Reactions: Allergies NO KNOWN ALLERGY Allergy (Verified 10/05/15 12:52) Home Medications: Ambulatory Orders Atorvastatin Calcium [Lipitor] 20 mg PO DAILY 08/04/15 Carvedilol [Coreg] 50 mg PO BEDTIME 08/04/15 Hydrochlorothiazide 50 mg PO DAILY 08/04/15 Omeprazole 20 mg PO DAILY 08/04/15 metFORMIN HCL [Glucophage] 500 mg PO DAILY 08/04/15 Tamsulosin HCl [Flomax] 0.4 mg PO Q24HR #30 cap 02/17/17 Aspirin [Aspirin Adult Low Dose] 81 mg PO QAM 03/29/17 LORazepam [Ativan] 0.5 mg PO Q4HR PRN 03/30/17 Saxagliptin HCl [Onglyza] 5 mg PO 1700 03/30/17 Amoxicillin [Amoxil] 500 mg PO BID #14 cap 03/31/17 Cephalexin 1,000 mg PO BID 7 Days #30 cap 06/27/17 Review of Systems - Review of Systems Constitutional: Denies: chills, fever EENTM: Denies: blurred vision, nose congestion, throat pain Respiratory: Denies: cough, 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 Cardiology: Denies: chest pain, palpitations Gastrointestinal/Abdominal: Denies: abdominal pain, nausea Genitourinary: Denies: dysuria Musculoskeletal: Denies: back pain, muscle pain, neck pain Skin: Denies: rash Neurological: States: anxiety, headache. Denies: numbness, paresthesia, tremors, weakness Endocrine: Denies: unexplained weight gain, unexplained weight loss Hematologic/Lymphatic: Denies: easy bleeding, easy bruising Past Medical History (General) - Patient Medical History Hx Seizures: No Hx Stroke: No Hx Asthma: No Hx of COPD: No Hx Cardiac Disorders: Yes - [place] 1998 Hx Congestive Heart Failure: Yes Hx Pacemaker: No Hx Hypertension: Yes Hx Diabetes: Yes - NIDDM Hx Gastroesophageal Reflux: Yes Hx MRSA: No MRSA Source:: Wound - Vaccination History Hx Influenza Vaccination: Yes - 2014 Hx Pneumococcal Vaccination: Yes - 2013 - Social History Hx Tobacco Use: Yes Hx Alcohol Use: No Hx Substance Use: No Hx Substance Use Treatment: No Hx Depression: No Hx Physical Abuse: No Hx Emotional Abuse: No - Female History Patient : No Family Medical History - Family History Father Living Status: Hx Cardiac Disease: Yes - mom/brothers Physical Exam - Physical Exam General Appearance: Alert, Comfortable, No apparent distress, Well Developed, Well Groomed, Well Hydrated, Well Nourished Eyes, Ears, Nose, Throat Exam: PERRL/EOMI, normal ENT inspection, TMs normal Neck: non-tender, full range of motion, supple, normal inspection, trachea midline Cardiovascular/Chest: normal peripheral pulses, regular rate, rhythm, no edema, no gallop, no JVD, no murmur Respiratory: chest non-tender, lungs clear, normal breath sounds, no respiratory distress, no accessory muscle use Gastrointestinal/Abdominal: normal bowel sounds, non tender, soft, no organomegaly, no pulsatile mass Back Exam: normal inspection, no CVA tenderness, no vertebral tenderness Extremity: normal range of motion, non-tender, normal inspection, no pedal edema, no calf tenderness, normal capillary refill Mental Status: alert, 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 Exam: normal hearing, normal speech, PERRL Coordination/Gait: normal finger to nose, normal gait, negative Romberg's sign Motor/Sensory: no motor deficit, no sensory deficit, no pronator drift Skin Exam: warm/dry, normal color Progress - Progress Progress: 04/15/20 14:22 04/15/20 13:29 EKG .ONCE 04/15/20 14:12 Discharge Stat Laboratory Results WBC 6.4 K/mm3 (4.8-10.8) 04/15/20 12:55 RBC 4.22 M/mm3 (4.70-6.10) L 04/15/20 12:55 Hgb 13.9 gm/dL (14.0-18.0) L 04/15/20 12:55 Hct 41.6 % (42.0-52.0) L 04/15/20 12:55 MCV 98.4 fl (80.0-94.0) H 04/15/20 12:55 MCH 32.8 pg (27.0-31.0) H 04/15/20 12:55 MCHC 33.4 g/dL (33.0-37.0) 04/15/20 12:55 RDW 14.0 % (11.5-14.5) 04/15/20 12:55 Plt Count 159 K/mm3 (130-400) 04/15/20 12:55 MPV 12.0 fl (7.40-10.4) H 04/15/20 12:55 Absolute Neuts (auto) 4.70 K/uL (1.8-6.8) 04/15/20 12:55 Absolute Lymphs (auto) 1.00 K/uL (1.0-3.4) 04/15/20 12:55 Absolute Monos (auto) 0.40 K/uL (0.2-0.8) 04/15/20 12:55 Absolute Eos (auto) 0.20 K/uL (0.0-0.4) 04/15/20 12:55 Absolute Basos (auto) 0.10 K/uL (0.0-0.1) 04/15/20 12:55 Neutrophils % 73.2 % (42.0-78.0) 04/15/20 12:55 Lymphocytes % 16.2 % (20.0-50.0) L 04/15/20 12:55 Monocytes % 6.0 % (2.0-9.0) 04/15/20 12:55 Eosinophils % 3.6 % (1.0-5.0) 04/15/20 12:55 Basophils % 1.0 % (0.0-2.0) 04/15/20 12:55 PT 12.1 SECONDS (9.0-10.9) H 04/15/20 12:55 INR 1.22 (0.9-1.15) H 04/15/20 12:55 PTT (SP) 24.7 SECONDS (21.8-31.6) 04/15/20 12:55 Sodium 136 mmol/L (135-145) 04/15/20 12:55 Potassium 3.9 mmol/L (3.6-5.0) 04/15/20 12:55 Chloride 100 mmol/L (101-111) L 04/15/20 12:55 Carbon Dioxide 26 mmol/L (21-31) 04/15/20 12:55 Anion Gap 13.9 (12-18) 04/15/20 12:55 BUN 13 mg/dL (7-18) 04/15/20 12:55 Creatinine 0.95 mg/dL (0.6-1.3) 04/15/20 12:55 BUN/Creatinine Ratio 13.7 (10-20) 04/15/20 12:55 Random Glucose 211 mg/dL (70-105) H 04/15/20 12:55 Serum Osmolality 278.3 mOsm/L (275-295) 04/15/20 12:55 Calcium 9.1 mg/dL (8.4-10.2) 04/15/20 12:55 Total Bilirubin 1.0 mg/dL (0.2-1.0) 04/15/20 12:55 AST 18 IU/L (10-42) 04/15/20 12:55 ALT 18 IU/L (10-60) 04/15/20 12:55 Alkaline Phosphatase 41 IU/L (42-121) L 04/15/20 12:55 Serum Total Protein 7.1 gm/dL (6.4-8.2) 04/15/20 12:55 Albumin 4.2 g/dl (3.2-5.5) 04/15/20 12:55 Globulin 2.9 gm/dL (2.3-3.5) 04/15/20 12:55 Albumin/Globulin Ratio 1.4 (1.1-1.9) 04/15/20 12:55 - Results/Orders Results/Orders: glucose 211, states he is suppose to take metformin twice a day, but only takes it once. Currently no headache. The data reviewed when caring for this patient included: nurse notes, prior records, etc. The history and assessments from nurses notes were reviewed and considered, and the patient's home medication list was also reviewed and considered. My assessment and the results of testing completed here in the ED were discussed with the patient/family. All questions were answered, and they express understanding of my assessment and the plan. They have been instructed to return if their symptoms worsen, and have been asked to follow up with their primary care physician to recheck today's presenting complaint. Strict return precautions given. I recommend take diabetes medication as prescribed. I also recommend he cute his beta janes (coreg) in half as his heart rate does drop in the low 40s at times and this may contributed to his symptoms of feeling ustable while going from sitting to standing. Current Heart rate 58-62. I recommend he take magnesium for headaches. Call doctor to follow up in 1-2 days Yvette Sylvester DO #801 - EKG/XRAY/CT EKG: Sinus - HR 79, RBBB, no ST T wave changes - when compared to prior ekg Comments: LAD, 1st degree av block which is new from prior ekg CT: head: no acute ICH, no acute pathology Departure - Departure Clinical Impression: Hyperglycemia Headache Qualifiers: Headache type: unspecified Headache chronicity pattern: acute headache Intractability: not intractable Qualified Code(s): R51.9 - Headache, unspecified Hypertension Qualifiers: Hypertension type: essential hypertension Qualified Code(s): I10 - Essential (primary) hypertension Time of Disposition: 13:46 Disposition: Discharge to Home or Self Care Departure Forms: ED Discharge - Pt. Copy, Patient Portal Self Enrollment Instructions: DI for Headache, Headache, Adult Diet: diabetic diet Activity: increase activity as tolerated Home Medications: Ambulatory Orders Atorvastatin Calcium [Lipitor] 20 mg PO DAILY 08/04/15 Carvedilol [Coreg] 50 mg PO BEDTIME 08/04/15 Hydrochlorothiazide 50 mg PO DAILY 08/04/15 Omeprazole 20 mg PO DAILY 08/04/15 metFORMIN HCL [Glucophage] 500 mg PO DAILY 08/04/15 Tamsulosin HCl [Flomax] 0.4 mg PO Q24HR #30 cap 02/17/17 Aspirin [Aspirin Adult Low Dose] 81 mg PO QAM 03/29/17 LORazepam [Ativan] 0.5 mg PO Q4HR PRN 03/30/17 Saxagliptin HCl [Onglyza] 5 mg PO 1700 03/30/17 Amoxicillin [Amoxil] 500 mg PO BID #14 cap 03/31/17 Cephalexin 1,000 mg PO BID 7 Days #30 cap 06/27/17
--- NOTE | 2020-04-15 12:58 | CT ---
EXAM: Head CLINICAL INDICATION: Headache COMPARISON: There is no previous study for comparison. TECHNIQUE: CT scan was done using contiguous axial 5 mm sections through the brain. This exam was performed according to our departmental dose-optimization program, which includes automated exposure control, adjustment of the mA and/or kV according to patient size and/or use of iterative reconstruction technique. FINDINGS: There is no midline shift, mass effect, or extraaxial fluid collection. There is no evidence of acute intracranial hemorrhage, mass lesion, or cerebral edema. The ventricles and cortical sulci are normal for the patient's age. Bone window images reveal no evidence of a skull fracture. IMPRESSION: No evidence of an acute intracranial process. Electronically signed by: Butch Garcia MD 04/15/2020 12:56 PM [employer] O[employer]ATOR
[2020-04-15 14:29] VITALS: TEMP 97.5
[2020-04-15 14:35] VITALS: BP 143/56; O2SAT 96
== END 2020-04-15 14:30 | disposition home or self-care (01) ==
LOC: ER 12:18
DX: R51.9 Headache, unspecified (principal); E11.65 Type 2 diabetes mellitus with hyperglycemia; I11.0 Hypertensive heart disease with heart failure; F41.9 Anxiety disorder, unspecified; I45.10 Unspecified right bundle-branch block; I44.0 Atrioventricular block, first degree; I50.9 Heart failure, unspecified; Z79.84 Long term (current) use of oral hypoglycemic drugs; I25.2 Old myocardial infarction; K21.9 Gastro-esophageal reflux disease without esophagitis; Z87.891 Personal history of nicotine dependence; Z79.82 Long term (current) use of aspirin; Z79.899 Other long term (current) drug therapy; Z20.822 Contact with and (suspected) exposure to COVID-19